=== PATIENT | female | born 1955 | race Caucasian/White ===

== ENCOUNTER 2017-08-11 14:54 | Emergency (ER) | payer BC ==
[2017-08-11 15:25] LABS: ASCORBIC ACID (UR NOT ORDER) 40 (NEG); BILIRUBIN, URINE NEGATIVE (NEG); ER URINALYSIS TAT 0 Hrs 09 Mins; KETONE, URINE NEGATIVE (NEG); LEUKOCYTE ESTERASE(NOT OR TRACE (NEG); NITRITE (URINE) NEG (NEG); WBC (NOT ORDERED) (RFLEX) 2 (0-5)
[2017-08-11 15:40] LABS: BASOPHILS 0.3 %; BASOPHILS ABSOLUTE 0.03 10/3/uL (0.0-0.16); EOSINOPHILS 1.5 %; EOSINOPHILS ABSOLUTE 0.15 10/3/uL (0.0-0.53); HEMATOCRIT 43.5 % (36.0-48.0); HEMOGLOBIN 14.6 g/dL (12.0-16.0); IMMATURE GRANULOCYTES 0.2 %; IMMATURE GRANULOCYTES ABSOLUTE 0.02 10/3/uL (0.0-0.11); LYMPHOCYTES ABSOLUTE 2.68 10/3/uL (0.67-4.30); MANUAL DIFF NO %; MEAN CORPUS HGB CONC 33.6 g/dL (32.0-36.0); MEAN CORPUSCULAR HEMOGLOB 30.4 pg (26.0-34.0); MEAN CORPUSCULAR VOLUME 90.4 fL (80-100); MEAN PLATELET VOLUME 10.1 fL (9.2-13.0); MONOCYTES 9.8 %; MONOCYTES ABSOLUTE 0.97 10/3/uL (0.21-1.20); NEUTROPHILS 61.2 %; NEUTROPHILS ABSOLUTE 6.06 10/3/uL (2.02-8.40); PLATELET COUNT 292 10/3/uL (150-400); RBC DISTRIBUTION WIDTH 13.7 % (12.0-16.0); RED CELL COUNT 4.81 10/6/uL (4.0-5.6); WHITE BLOOD CELLS 9.9 10/3/uL (4.5-10.5)
[2017-08-11 15:56] LABS: ALBUMIN 4.2 G/DL (3.5-5.0); BUN (BLOOD UREA NITROGEN) 15 MG/DL (6-23); CALCIUM, SERUM 9.9 MG/DL (8.5-10.4); CHLORIDE, SERUM 105 MMOL/L (96-112); CO2 (CARBON DIOXIDE) 28 MMOL/L (24-34); CREATININE 0.83 MG/DL (0.55-1.02); GFR AFRICAN AMERICAN 88 ML/MIN (>=60); GFR NON AFRICAN AMERICAN 76 ML/MIN (>=60); SGPT(ALT) 42 U/L (5-65); SODIUM, SERUM 138 MMOL/L (135-148); TOTAL BILIRUBIN 0.5 MG/DL (0-1.2); TOTAL PROTEIN 8.2 G/DL (6.0-8.5)
[2017-08-11 15:58] LABS: POTASSIUM, SERUM 4.1 MMOL/L (3.5-5.3)
[2017-08-11 15:59] LABS: A/G RATIO 1.1 (0.7-1.9); ALKALINE PHOSPHATASE 85 U/L (45-117); GLUCOSE, SERUM 98 MG/DL (60-99); SGOT(AST) 35 U/L (5-40)
[2017-08-14] MEDS ORDERED: PROBIOTIC PO (09:41)
== END 2017-08-11 16:32 | disposition home or self-care (01) ==
LOC: ER 14:54
PROVIDERS: Emergency Medicine
DX: K57.92 Diverticulitis of intestine, part unspecified, without perforation or abscess without bleeding (principal)
CPT/HCPCS: 74176; 80053; 81001; 83690; 85025; 99284; A9270-GY

== ENCOUNTER 2017-08-14 04:30 | Observation (INO) | payer BC ==
--- NOTE | ~2017-08-14 | DS ---
Discharge Summary [facility] [id number] [place]. [address] NAME: YOLY KELLER : 53 STATUS : DIS Brynn PAT#: [id number] AGE: 61 ADM/REG DATE : 08/14/17 MR#: [id number] REPORT SERV DATE: 08/16/17 DICTATED BY: AZIZA RIVAS DATE: 08/15/17 REPORT STATUS : Draft TRANSCRIBED BY: MODL DATE: 08/15/17 ADMISSION DATE: 08/14/2017 DISCHARGE DATE: 08/15/2017 The patient is being discharged early due to unexpected recovery at this time. CONDITION ON DISCHARGE: Stable. DISPOSITION: Discharged to home. DIAGNOSES ON DISCHARGE: Greenish or almost black tarry stools secondary to probably medications-the patient had been diagnosed with a recent history of colitis, probably ischemic colitis for which the patient was on ciprofloxacin and Flagyl, and in the middle of the treatment developed diarrhea and almost black tarry/very dark green stools, and hence was admitted to the hospital with possible diagnosis of melena. GI was consulted. The patient underwent an upper endoscopy or EGD which showed completely normal esophagus, stomach, and duodenum with no evidence of any bleed anywhere. The patient also underwent stool studies including stool for Clostridium difficile that came back negative for Clostridium difficile. Her hemoglobin and hematocrit remained stable throughout, and so did her electrolytes. Her CT scan of the abdomen and pelvis on 08/11/2017 showed minimal inflammation lateral to the ascending colon which was nonspecific, but could be diverticulitis at this time. It should be remembered that the patient was previously also diagnosed with probably ischemic colitis and was in the middle of the treatment with antibiotics which included ciprofloxacin and Flagyl. Anyhow, the patient underwent upper endoscopy, and on 08/15/2017 was cleared by GI for discharge. The patient was then started on clear liquids and diet was advanced to soft GI diet, which she tolerated real well without any nausea, vomiting, or abdominal pain. There is no more visible bleeding either, and hence the patient is being discharged home in stable condition. I have her most recent CBC that shows a completely normal CBC including WBC of 7.5, hemoglobin 13.8, hematocrit 41.4, and platelet count of 287. Electrolyte profile is also completely normal with sodium 139, potassium 3.9, BUN is 7, and creatinine is 0.7. MEDICATIONS: The patient's home medications that she will be discharged home on include the following. She will resume her antibiotic treatment with ciprofloxacin and Flagyl, and stop the treatment on 08/21/2017 as prescribed. She was to begin this treatment on 08/11/2017, which she did and she was supposed to take it until 08/21/2017, which she will. The patient already has a filled prescription for both ciprofloxacin and Flagyl. Next, she will continue Estrace vaginal cream, Glucophage 500 mg p.o. b.i.d., lisinopril 10 mg once a day, simvastatin 40 mg once a day, aspirin 81 mg once a day, Florastor one capsule p.o. b.i.d. for the next 10 days, and her vitamins and mineral capsules. Hence, she is being discharged home in stable condition, and I have spent about 30 to 35 minutes in coordinating discharge care of this patient including [id number] encounter and summarizing this discharge. Discharge Summary [address] [address] NAME: YOLY KELLER : 53 STATUS : DIS Brynn PAT#: [id number] AGE: 61 ADM/REG DATE : 08/14/17 MR#: [id number] REPORT SERV DATE: 08/16/17 DICTATED BY: AZIZA RIVAS DATE: 08/15/17 REPORT STATUS : Draft TRANSCRIBED BY: JOEL DATE: 08/15/17 LINO/JOEL Aziza Rivas M.D. / [id number] CC: Sharron Mcgarry M.D.
--- NOTE | ~2017-08-14 | EGD ---
EGD REPORT [facility] [address] [place]. [place] [address] NAME: YOLY GARCIA : 53 STATUS : ADM Brynn PAT#: [id number] AGE: 61 ADM/REG DATE : 08/14/17 MR#: [id number] REPORT SERV DATE: 08/15/17 DICTATED BY: TERELL MICHELLE DATE: 08/15/17 REPORT STATUS : Draft [facility]ED [facility]: [facility] DATE: 08/15/17 Endoscopy Center Patient Name: Yoly Garcia Date of : 1955 Attending MD: TERELL MICHELLE MD Procedure Date No Time: 08/15/2017 Procedure: Upper GI endoscopy Indications: Melena; ASA; no acid suppression. Patient Profile: Informed consent was obtained from the patient by me prior to the procedure. Risks, benefits, and alternatives were reviewed including the risk of bleeding, perforation, infection, reaction to medicine, missed lesion, and cardiopulmonary complications. Medicines: Monitored Anesthesia Care Complications: No immediate complications. Procedure: Pre-Anesthesia Assessment: - ASA Grade Assessment: II - A patient with mild systemic disease. After obtaining informed consent, the endoscope was passed under direct vision. Throughout the procedure, the patient's blood pressure, pulse, and oxygen saturations were monitored continuously. The GIF [id number] was introduced through the mouth, and advanced to the second part of duodenum. The endoscope was withdrawn with careful examination all mucosal surfaces including retroflexion stomach. The upper GI endoscopy was accomplished without difficulty. The patient tolerated the procedure well. Findings: The examined duodenum was normal. The entire examined stomach and gastric fundus (on retroflexion) were normal. The examined esophagus was normal. Rectal exam = green stool, no blood. Impression: - Normal examined duodenum. - Normal stomach and gastric fundus. - Normal esophagus. Recommendation: Treat inflammation fat near AC cipro/flagyl. H/o ischemic colitis but green stool and HCT normal; pain also resolved. F/u stool Cx, finish abx. Outpatient colonoscopy August. EGD REPORT [facility] [address] [address] NAME: YOLY GARCIA : 53 STATUS : ADM Brynn PAT#: [id number] AGE: 61 ADM/REG DATE : 08/14/17 MR#: [id number] REPORT SERV DATE: 08/15/17 DICTATED BY: TERELL MICHELLE. DATE: 08/15/17 REPORT STATUS : Draft TRANSCRIBED BY: [employer] DATE: 08/15/17 D/c home OK gi standpoint. Procedure Code(s): --- Professional --- 27054, Esophagogastroduodenoscopy, flexible, transoral; diagnostic, including collection of specimen(s) by brushing or washing, when performed (separate procedure) Diagnosis Code(s): --- Professional --- K92.1, Melena CPT copyright 2013 [employer]. All rights reserved. The codes documented in this report are preliminary and upon crystal report developer review may be revised to meet current compliance requirements. TERELL MICHELLE MD 08/15/2017 8:26 AM This report has been signed electronically. Number of Addenda: 0 Note Initiated On: 08/15/2017 7:56 AM Scope Withdrawal Time 0 hours 1 minute 20 seconds [id number] [phone]
--- NOTE | ~2017-08-14 | HP ---
History And Physical [facility] [address] [place]. [address] NAME: YOLY KELLER : 53 STATUS : ADM Brynn PAT#: [id number] AGE: 61 ADM/REG DATE : 08/14/17 MR#: [id number] REPORT SERV DATE: 08/14/17 DICTATED BY: JR. SCHWARTZ WILLIAM JOHN DATE: 08/14/17 REPORT STATUS : Draft TRANSCRIBED BY: MODDayana DATE: 08/14/17 DATE OF ADMISSION: 08/14/2017 HISTORY OF PRESENT ILLNESS: This is a 61-year-old female who presents to the emergency room with complaint of melena. The case is discussed with Dr. Brito as well as with the patient. There were no significant records in [facility]. The patient was on vacation in [place] until seven days ago and towards the end of the trip, she developed explosive diarrhea followed by abdominal pain in the right lower quadrant. The pain worsened, and she came to the emergency room on 08/10, had a CT of the abdomen and pelvis, which showed no evidence of appendiceal inflammation. There was possible colitis/diverticulitis. She was started on Flagyl, Levaquin, and was discharged from the emergency room. The pain significantly increased and has in fact resolved. Then last night, she developed two episodes of black tarry "coffee-ground" stools. No bright red blood. No significant NSAID use except daily aspirin. No alcohol. The patient denies chest pain, shortness of breath, or dizziness. Dr. Godwin of Gastroenterology was contacted from the emergency room. He recommended admission with an upper endoscopy to be done tomorrow. PAST MEDICAL HISTORY: Includes. 1. Diabetes mellitus type 2. 2. Hyperlipidemia. 3. Diverticulosis. 4. Hypertension. HOME MEDICATIONS: Include aspirin 81 daily, vitamin D 1000 units daily, Cipro 500 twice a day, estradiol vaginal cream every Thursday and , lisinopril 10 daily, metformin 500 twice a day, Flagyl 500 three times a day, probiotic daily, Zocor 40 daily, PreserVision one capsule daily. ALLERGIES: NO KNOWN DRUG ALLERGIES. FAMILY HISTORY: Mother living age 87, has history of aortic stenosis, lung cancer. Father at age 85 of dementia. SOCIAL HISTORY: Lives in [place], [place] with her . She is a retired nurse and insurance healthcare representative. She occasionally drink alcohol. Denies tobacco or illicit drugs. REVIEW OF SYSTEMS: Negative in all 12 systems reviewed except does admit to cough, diarrhea, history of migraines. PHYSICAL EXAMINATION: VITAL SIGNS: Temperature 97.9, blood pressure 144/69, heart rate 93, respiratory rate 16. GENERAL: The patient is alert, oriented, in no acute distress. HEENT: Pupils are equal, round, and reactive to light. Extraocular motion intact. Sclerae History And Physical [address] [address] NAME: YOLY KELELR : 53 STATUS : ADM Brynn PAT#: [id number] AGE: 61 ADM/REG DATE : 08/14/17 MR#: [id number] REPORT SERV DATE: 08/14/17 DICTATED BY: JR. SCHWARTZ WILLIAM JOHN DATE: 08/14/17 REPORT STATUS : Draft TRANSCRIBED BY: JOEL DATE: 08/14/17 anicteric. Oropharynx clear. NECK: Supple without jugular venous distention, thyromegaly, or bruits. LUNGS: Clear to auscultation bilaterally with symmetrical chest rise. CARDIOVASCULAR: S1, S2 without gallop, murmur, or rub. Point of maximal impulse is nondisplaced. ABDOMEN: Soft, nontender, bowel sounds present. EXTREMITIES: No clubbing, cyanosis, edema. NEUROLOGIC: Cranial nerves 2 through 12 are intact. Strength and sensation are full and equal throughout. DERMATOLOGIC: No rash or other lesions noted. PSYCHIATRIC: Mood and affect are appropriate. LABORATORY DATA: White count of 5.3, hemoglobin 12.8, platelets 323. PT 13.4 with an INR of 1, PTT 29.1. Sodium 139, potassium 3.8, chloride 105, bicarb 24, BUN 10, creatinine 0.7, glucose 123, total protein 7.9, albumin 4.2, calcium 9.9, total bilirubin 0.4, alkaline phosphatase 82, SGOT 20, SGPT 36. EKG shows sinus rhythm rate of [address] or T- wave changes. ASSESSMENT AND PLAN: A 61-year-old female with: 1. Melena, likely upper gastrointestinal bleed. Hemoglobin 13.8, no symptoms, platelets and coags are normal. No significant NSAID use except daily aspirin. No significant alcohol use. We will plan check an H and H every 12 hours. Put her on b.i.d. Protonix and consult Dr. Godwin for an EGD in the morning. We will also hold her aspirin. 2. Possible diverticulitis. We will continue p.o. Flagyl and Levaquin to complete a ten- day course. 3. Diabetes mellitus type 2, on metformin at home which we will hold and place her on sliding scale insulin. 4. Hypertension. We will continue with ASIYA inhibitor. 5. Hyperlipidemia. 6. Observation status. JM/JOEL Candido Schwartz Jr, MD / [id number] CC: Candido Schwartz Jr, MD Steven Dowlen, M.D.
--- NOTE | ~2017-08-14 | CN ---
Consultation Report [facility] [address] [place]. [address] NAME: YOLY GARCIA : 53 STATUS : ADM Brynn PAT#: [id number] AGE: 61 ADM/REG DATE : 08/14/17 MR#: [id number] REPORT SERV DATE: 08/14/17 DICTATED BY: ANGLE GUZMAN DATE: 08/14/17 REPORT STATUS : Draft TRANSCRIBED BY: MODL DATE: 08/14/17 GI CONSULTATION DATE OF CONSULTATION: 08/14/2017 REASON FOR CONSULTATION: Evaluation and management of melena and Hemoccult-positive stools. HISTORY OF PRESENT ILLNESS: Ms. Garcia is a 61-year-old female patient, who presented to [facility] on 08/14 with a chief complaint of black tarry stools. She has a history of recently being seen at [facility] Emergency Room on 08/11/2017 secondary to right-sided abdominal pain. CT scan of the abdomen and pelvis done on that date showed that she had minimal inflammation of fat lateral to the ascending colon, nonspecific, but could represent diverticulitis; no significant adjacent colonic wall thickening. She states that she has been on Cipro and Flagyl since that point in time. Her right-sided abdominal pain has improved significantly; however, she has persisted to have diarrhea. 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 A couple of hours later, the same thing. Secondary to the black tarry stools, she came in for further evaluation. Emergency room physician performed rectal exam with Hemoccult, and he reported black tarry stools as Hemoccult positive, thus prompting GI consultation for further evaluation. The patient tells me that she and her have recently returned from [place]. She states that when she was there, she started experiencing diarrhea last Thursday while she was still in [place]. She had right-sided pain and increase in diarrhea. She states that she and her flew home on 08/09/2017. She continued to have worsening abdominal pain with diarrheal stools. At that point in time, she states they were brown in color. No mucus. No hematochezia. She denies any recent fever, chills, or chest pain. Secondary to the pain, she came into the emergency room on 08/11 and was diagnosed with diverticulitis. She tells me that she has typically soft formed stools, but sometimes, will have what she describes as IBS with diarrhea if she eats something out of her routine food groups. She has had a colonoscopy, but it has been 11 years ago while she was here at [facility]. This was done by Dr. Lalo Frankel, who is no longer practicing in the [facility]. Biopsy results revealed that she had ischemic colitis, felt secondary to hormone therapy. I have discussed with the patient we will plan for upper endoscopy tomorrow. Risks, benefits, alternatives, and complications were detailed for her to include, but not limited to risk of bleeding, perforation, infection, reaction to medication, as well as cardiac and pulmonary side effects. I did discuss with her she would need a followup colonoscopy six weeks out from resolution of her diverticulitis. Also importantly, the patient denies any NSAIDs, but she does take an 81 mg of baby aspirin every night. PAST MEDICAL HISTORY: Positive for ischemic colitis in 2005, recent diverticulitis, hypertension, diabetes, elevated cholesterol. PAST SURGICAL HISTORY: She denies. Consultation Report [facility] [id number] [facility] [place]. [address] NAME: YOLY GARCIA : 53 STATUS : ADM Brynn PAT#: [id number] AGE: 61 ADM/REG DATE : 08/14/17 MR#: [id number] REPORT SERV DATE: 08/14/17 DICTATED BY: ANGLE GUZMAN DATE: 08/14/17 REPORT STATUS : Draft TRANSCRIBED BY: JOEL DATE: 08/14/17 FAMILY HISTORY: Noncontributory from a GI standpoint. SOCIAL HISTORY: She is . She lives independently. Denies alcohol, tobacco, or illicits. ALLERGIES: LISTED TO NOTHING. HOME MEDICATIONS: Aspirin, vitamin D, Cipro, estradiol vaginal cream, Zestril, Glucophage, Flagyl, probiotic, Zocor, and PreserVision. REVIEW OF SYSTEMS: A 10-point review of systems was obtained with pertinent positives being addressed in the history of present illness. PERTINENT LABORATORY DATA: Sodium is 139, potassium is 3.8, BUN 10, creatinine 0.74. White count 5.3, hemoglobin 13.8, hematocrit 41.8, platelet count 323. INR of 1. PHYSICAL EXAMINATION: VITAL SIGNS: Temperature 97.9, pulse of 93, respirations of 16, blood pressure 144/69. NEURO: Reveals an alert female, resting in bed with no focal deficits. Awake, alert, and oriented x3. HEAD, EARS, EYES, NOSE, AND THROAT: Anicteric. Pupils equal, round, reactive to light and accommodation. Normocephalic and atraumatic. GENERAL: She is cooperative. She is pleasant, in no acute distress. LUNGS: Diminished throughout with normal respiratory effort exhibited. NECK: No JVD or palpable nodes. Supple. CARDIOVASCULAR SYSTEM: Regular rate and rhythm. ABDOMEN: Soft. Some very mild tenderness to right side on deep palpation, but no rebound or guarding elicited on exam. She has active bowel sounds. She has a nondistended abdomen. EXTREMITIES: No edema. Normal distal pulses. SKIN: Warm, dry, and intact. ASSESSMENT: 1. Melena with Hemoccult-positive stools, acute onset this morning. Differential diagnosis includes peptic ulcer disease, esophagitis, gastritis. 2. Recent diverticulitis, treatment began on 08/11/2017. 3. History of ischemic colitis in 2005. 4. Diarrhea. 5. History of diabetes. 6. History of hypertension. PLAN: 1. N.p.o. after midnight and clear liquid diet until then. 2. Monitor H and H. Consultation Report [address] [place]. [address] NAME: YOLY GARCIA : 53 STATUS : ADM Brynn PAT#: [id number] AGE: 61 ADM/REG DATE : 08/14/17 MR#: [id number] REPORT SERV DATE: 08/14/17 DICTATED BY: ANGLE GUZMAN DATE: 08/14/17 REPORT STATUS : Draft TRANSCRIBED BY: JOEL DATE: 08/14/17 3. EGD in the morning with Dr. Zambrano. 4. I did discuss with the patient she will need outpatient followup colonoscopy after resolution of her diverticulitis in six weeks. Other recommendations to follow endoscopy. BARBARA/JOEL [place] AMARILIS Craven / [id number] CC: Candido Schwartz Jr, MD Steven Dowlen, M.D.
[2017-08-14 05:18] LABS: BASOPHILS 0.4 %; BASOPHILS ABSOLUTE 0.02 10/3/uL (0.0-0.16); EOSINOPHILS 2.5 %; EOSINOPHILS ABSOLUTE 0.13 10/3/uL (0.0-0.53); HEMATOCRIT 41.8 % (36.0-48.0); HEMOGLOBIN 13.8 g/dL (12.0-16.0); LYMPHOCYTES 28.6 %; MEAN CORPUSCULAR HEMOGLOB 29.7 pg (26.0-34.0); MEAN CORPUSCULAR VOLUME 89.9 fL (80-100); MEAN PLATELET VOLUME 10.3 fL (9.2-13.0); MONOCYTES 6.1 %; MONOCYTES ABSOLUTE 0.32 10/3/uL (0.21-1.20); NEUTROPHILS 62.4 %; NEUTROPHILS ABSOLUTE 3.28 10/3/uL (2.02-8.40); PLATELET COUNT 323 10/3/uL (150-400); RBC DISTRIBUTION WIDTH 13.6 % (12.0-16.0); RED CELL COUNT 4.65 10/6/uL (4.0-5.6)
[2017-08-14 05:19] LABS: WHITE BLOOD CELLS 5.3 10/3/uL (4.5-10.5)
[2017-08-14 05:20] LABS: ER CBC TAT 0 Hrs 17 MinS; MANUAL DIFF NO %
[2017-08-14 05:22] LABS: A/G RATIO 1.1 (0.7-1.9); ALBUMIN 4.2 G/DL (3.5-5.0); ALKALINE PHOSPHATASE 82 U/L (45-117); BUN (BLOOD UREA NITROGEN) 10 MG/DL (6-23); CALCIUM, SERUM 9.9 MG/DL (8.5-10.4); CHLORIDE, SERUM 105 MMOL/L (96-112); CO2 (CARBON DIOXIDE) 24 MMOL/L (24-34); CREATININE 0.74 MG/DL (0.55-1.02); GFR AFRICAN AMERICAN 101 ML/MIN (>=60); GFR NON AFRICAN AMERICAN 87 ML/MIN (>=60); GLOBULIN 3.7 G/DL (2.5-4.1); GLUCOSE, SERUM 123 MG/DL (60-99); POTASSIUM, SERUM 3.8 MMOL/L (3.5-5.3); SGOT(AST) 20 U/L (5-40); SGPT(ALT) 36 U/L (5-65); SODIUM, SERUM 139 MMOL/L (135-148); TOTAL BILIRUBIN 0.4 MG/DL (0-1.2); TOTAL PROTEIN 7.9 G/DL (6.0-8.5)
[2017-08-14 05:34] LABS: PARTIAL THROMBO TIME 29.1 SEC (22.5-37.2); PROTIME (NOT ORD) 13.4 SEC (12.0-14.5)
[2017-08-14] MEDS ORDERED: ESTRACE VAGIN42.5 GM V (09:40)
[2017-08-14] MEDS ORDERED: CIP5 PO (09:40)
[2017-08-14] MEDS ORDERED: FLAG500TAB PO (09:40)
[2017-08-14] MEDS ORDERED: GLUCPH PO (09:41)
[2017-08-14] MEDS ORDERED: FLORASTOR250 MG PO (09:41)
[2017-08-14] MEDS ORDERED: ZESTRIL10 MG PO (09:41)
[2017-08-14] MEDS ORDERED: ZOCOR40 PO (09:41)
[2017-08-14] MEDS ORDERED: HALF81 PO (09:41)
[2017-08-14] MEDS ORDERED: PRESERVISION A1 EAC1 PO (09:42)
[2017-08-14] MEDS ORDERED: VITAMIN D1000 UNI1 PO (09:42)
[2017-08-14 16:30] LABS: HEMATOCRIT 38.7 % (36.0-48.0); HEMOGLOBIN 12.8 g/dL (12.0-16.0)
[2017-08-15 12:08] LABS: BASOPHILS 0.3 %; BASOPHILS ABSOLUTE 0.02 10/3/uL (0.0-0.16); EOSINOPHILS 0.9 %; EOSINOPHILS ABSOLUTE 0.07 10/3/uL (0.0-0.53); HEMATOCRIT 41.4 % (36.0-48.0); HEMOGLOBIN 13.8 g/dL (12.0-16.0); IMMATURE GRANULOCYTES 0.1 %; IMMATURE GRANULOCYTES ABSOLUTE 0.01 10/3/uL (0.0-0.11); LYMPHOCYTES 30.5 %; LYMPHOCYTES ABSOLUTE 2.28 10/3/uL (0.67-4.30); MEAN CORPUS HGB CONC 33.3 g/dL (32.0-36.0); MEAN PLATELET VOLUME 10.2 fL (9.2-13.0); MONOCYTES 6.4 %; MONOCYTES ABSOLUTE 0.48 10/3/uL (0.21-1.20); NEUTROPHILS 61.8 %; NEUTROPHILS ABSOLUTE 4.61 10/3/uL (2.02-8.40); PLATELET COUNT 287 10/3/uL (150-400); RBC DISTRIBUTION WIDTH 13.4 % (12.0-16.0)
[2017-08-15 12:09] LABS: MANUAL DIFF NO %; WHITE BLOOD CELLS 7.5 10/3/uL (4.5-10.5)
[2017-08-15 12:14] LABS: INTERNATIONAL NORMAL RATI 1.1 UNITS (-); PROTIME (NOT ORD) 14.3 SEC (12.0-14.5)
[2017-08-15 12:15] LABS: BUN (BLOOD UREA NITROGEN) 7 MG/DL (6-23); CALCIUM, SERUM 9.4 MG/DL (8.5-10.4); CHLORIDE, SERUM 106 MMOL/L (96-112); CO2 (CARBON DIOXIDE) 25 MMOL/L (24-34); CREATININE 0.74 MG/DL (0.55-1.02); GFR AFRICAN AMERICAN 101 ML/MIN (>=60); GFR NON AFRICAN AMERICAN 87 ML/MIN (>=60); GLUCOSE, SERUM 101 MG/DL (60-99); POTASSIUM, SERUM 3.9 MMOL/L (3.5-5.3); SODIUM, SERUM 139 MMOL/L (135-148)
== END 2017-08-15 16:08 | disposition home or self-care (01) ==
LOC: ENRESERVDT → ENRESERVTM → ENRESERV → ER 04:30 → 4SO 10:58
PROVIDERS: Emergency Medicine; Internal Medicine; Nurse Practitioner Family
DX: I48.0 Paroxysmal atrial fibrillation (principal); R42 Dizziness and giddiness; I48.91 Unspecified atrial fibrillation; E87.1 Hypo-osmolality and hyponatremia; E87.2 Acidosis; R55 Syncope and collapse; I10 Essential (primary) hypertension; E11.9 Type 2 diabetes mellitus without complications; Z79.899 Other long term (current) drug therapy
CPT/HCPCS: 36415; 80048; 80053; 82962; 85014; 85018; 85025; 85610; 85730; 86850; 86900; 86901; 87045; 87046; 87046-59; 87328; 87329; 87493; 87493-59; 87641; 87899; 87899-59; 89055; 93005; 96374; 96376; 99285; A9270-GY; C9113; G0378